=== PATIENT | male | born 1950 | race Caucasian/White ===

== ENCOUNTER 2018-07-10 13:51 | Emergency (ER) | payer OTHER ==
[2018-07-10] MEDS ORDERED: GLUCAGON 1 MG/VIAL ONE ×2 (14:47→16:11)
[2018-07-10] MEDS ORDERED: ONDANSETRON 4 MG/2 ML VIAL ONE (14:47)
[2018-07-10] MEDS ORDERED: NA CHLORIDE 0.9% 1,000 ML ONE (14:47)
[2018-07-10 14:49] LABS: Absolute Lymphocytes (CBC) 0.7 K/uL (0.7-4.9); Absolute Monocytes 0.6 K/uL (0.1-1.3); Absolute Neutrophil 7.3 K/uL (1.8-8.0); Basophils % 0.6 % (0-1.3); Eosinophils % 3.2 % (0-4.4); Hematocrit 39.1 % (39.6-49.0); Lymphocytes % 7.7 % (15.3-44.8); MPV 10.5 fL (7.6-11.3); Monocytes % 7.1 % (3.3-12.3); RBC Red Blood Cell Count 4.38 M/uL (4.33-5.43)
[2018-07-10 14:58] LABS: Protime INR 1.03
[2018-07-10 15:13] LABS: ALT/SGPT 26 U/L (12-78); AST/SGOT 15 U/L (15-37); Albumin 3.6 g/dL (3.4-5.0); Alkaline Phosphatase 125 U/L (45-117); BUN Blood Urea Nitrogen 26 mg/dL (7-18); Bicarbonate 30 mmol/L (21-32); Bilirubin Direct 0.1 mg/dL (0-0.2); Bilirubin Total 0.4 mg/dL (0.2-1.0); Glucose Level 123 mg/dL (74-106); Magnesium 2.3 mg/dL (1.8-2.4); NT PRO-BNP 564 pg/mL (<125); Potassium 3.8 mmol/L (3.5-5.1); Protein, Total 8.3 g/dL (6.4-8.2); Sodium Level 146 mmol/L (136-145); Troponin (Emerg Dept Use Only) < 0.02 ng/mL (0.0-0.045)
--- NOTE | 2018-07-10 15:22 | RAD REPORT ---
EXAM DESCRIPTION: RAD - Chest Single View - 07/10/2018 3:14 pm CLINICAL HISTORY: Cough COMPARISON: None. TECHNIQUE: AP portable chest image was obtained 1510 hours . FINDINGS: Exam is limited by large body habitus and shallow inspiration. Right base opacification co uld be infiltrate, atelectasis or a combination. Left hemidiaphragm elevation present. This limits po sterior left base assessment. Heart and vasculature are normal range in exam limitations. No measurab le pleural effusion and no pneumothorax. No acute bony abnormality seen. No acute aortic findings karel pected. IMPRESSION: Limited portable study showing atelectasis and/ or infiltrate right base.
--- NOTE | 2018-07-10 16:13 | EDPHYS ---
Physician Documentation [facility] Name: Arcenio Ovalle Age: 67 yrs Sex: Male : 1950 Arrival Date: 07/10/2018 Time: 13:54 Bed 17 Private MD: ED Physician Ander Hyde HPI: 07/10 14:57 This 67 yrs old Male presents to ER via Wheelchair with complaints of vriy Difficulty Swallowing - lodged food from last night. 14:57 The patient presents with a foreign body sensation in the throat. The patient describes viry throat pain as dry. Onset: The symptoms/episode began/occurred 1 day(s) ago. Severity of symptoms: At their worst the symptoms were mild, last night. Modifying factors: The symptoms are alleviated by nothing, the symptoms are aggravated by fluids, foods, swallowing. Associated signs and symptoms: The patient has no apparent associated signs or symptoms. The patient has not experienced similar symptoms in the past. Historical: - Allergies: 14:12 No Known Allergies; ch - PMHx: 14:12 Hyperlipidemia; CHF; COPD; o2 depandant; CVA; pulmonary embolism; Diabetes - NIDDM; ch Hypertension; anurism-unknown type; 14:12 GERD; ch - PSHx: 14:12 cardiac stents; ch - Immunization history:: Adult Immunizations up to date, Flu vaccine is not up to date. - Social history:: Smoking status: Patient/guardian denies using tobacco, Patient/guardian denies using alcohol, street drugs. - Ebola Screening: : Patient negative for fever greater than or equal to 101.5 degrees Fahrenheit, and additional compatible Ebola Virus Disease symptoms Patient denies exposure to infectious person Patient denies travel to an Ebola-affected area in the 21 days before illness onset No symptoms or risks identified at this time. - Family history:: not pertinent. ROS: 14:57 Constitutional: Negative for fever, chills, and weight loss, Eyes: Negative for injury, viry pain, redness, and discharge, ENT: Negative for injury, pain, and discharge, Neck: Negative for injury, pain, and swelling, Cardiovascular: Negative for chest pain, palpitations, and edema, Respiratory: Negative for shortness of breath, cough, wheezing, and pleuritic chest pain, Back: Negative for injury and pain, : Negative for injury, bleeding, discharge, and swelling, MS/Extremity: Negative for injury and deformity, Skin: Negative for injury, rash, and discoloration, Neuro: Negative for headache, weakness, numbness, tingling, and seizure, Psych: Negative for depression, anxiety, suicide ideation, homicidal ideation, and hallucinations, Allergy/Immunology: Negative for hives, rash, and allergies, Endocrine: Negative for neck swelling, polydipsia, polyuria, polyphagia, and marked weight changes, Hematologic/Lymphatic: Negative for swollen nodes, abnormal bleeding, and unusual bruising. 14:57 Abdomen/GI: Positive for abdominal pain, nausea and vomiting, food bolus in the esophgus. Exam: 14:57 Constitutional: This is a well developed, well nourished patient who is awake, alert, viry and in no acute distress. Head/Face: Normocephalic, atraumatic. Eyes: Pupils equal round and reactive to light, extra-ocular motions intact. Lids and lashes normal. Conjunctiva and sclera are non-icteric and not injected. Cornea within normal limits. Periorbital areas with no swelling, redness, or edema. ENT: Nares patent. No nasal discharge, no septal abnormalities noted. Tympanic membranes are normal and external auditory canals are clear. Oropharynx with no redness, swelling, or masses, exudates, or evidence of obstruction, uvula midline. Mucous membranes moist. Neck: Trachea midline, no thyromegaly or masses palpated, and no cervical lymphadenopathy. Supple, full range of motion without nuchal rigidity, or vertebral point tenderness. No Meningismus. Chest/axilla: Normal chest wall appearance and motion. Nontender with no deformity. No lesions are appreciated. Cardiovascular: Regular rate and rhythm with a normal S1 and S2. No gallops, murmurs, or rubs. Normal PMI, no JVD. No pulse deficits. Respiratory: Lungs have equal breath sounds bilaterally, clear to auscultation and percussion. No rales, rhonchi or wheezes noted. No increased work of breathing, no retractions or nasal flaring. Back: No spinal tenderness. No costovertebral tenderness. Full range of motion. Male : Normal genitalia with no discharge or lesions. Skin: Warm, dry with normal turgor. Normal color with no rashes, no lesions, and no evidence of cellulitis. MS/ Extremity: Pulses equal, no cyanosis. Neurovascular intact. Full, normal range of motion. Neuro: Awake and alert, GCS 15, oriented to person, place, time, and situation. Cranial nerves II-XII grossly intact. Motor strength 5/5 in all extremities. Sensory grossly intact. Cerebellar exam normal. Normal gait. Psych: Awake, alert, with orientation to person, place and time. Behavior, mood, and affect are within normal limits. 14:57 Abdomen/GI: Inspection: distension, Bowel sounds: normal, active, Palpation: abdomen is soft and non-tender, Liver: no appreciated palpable abnormalities, Hernia: not appreciated. Vital Signs: 14:12 BP 156 / 79; Pulse 81; Resp 22; Temp 98.1; Pulse Ox 99% on R/A; Weight 149.69 kg; ch Height 5 ft. 8 in. (172.72 cm); 15:00 BP 151 / 83; Pulse 79; Resp 23; Pulse Ox 96% on 3 lpm NC; dh3 15:30 BP 156 / 80; Pulse 76; Resp 22; Pulse Ox 99% on 3 lpm NC; dh3 17:30 BP 158 / 84; Pulse 81; Resp 20; Pulse Ox 97% on 3 lpm NC; em 14:12 Body Mass Index 50.18 (149.69 kg, 172.72 cm) MDM: 14:31 Patient medically screened. [facility] 15:02 Data reviewed: vital signs, nurses notes, lab test result(s), EKG, radiologic studies, viry plain films. 07/10 14:33 Order name: Basic Metabolic Panel; Complete Time: 16:08 [facility] 07/10 14:33 Order name: CBC with Diff; Complete Time: 15:03 [facility] 07/10 14:33 Order name: LFT's; Complete Time: 16:08 [facility] 07/10 14:33 Order name: Magnesium; Complete Time: 16:08 [facility] 07/10 14:33 Order name: NT PRO-BNP; Complete Time: 16:08 [facility] 07/10 14:33 Order name: PT-INR; Complete Time: 15:03 [facility] 07/10 14:33 Order name: Troponin (emerg Dept Use Only); Complete Time: 16:08 [facility] 07/10 14:33 Order name: XRAY Chest (1 view); Complete Time: 16:08 [facility] 07/10 14:33 Order name: EKG; Complete Time: 14:34 [facility] 07/10 14:33 Order name: Cardiac monitoring; Complete Time: 14:55 [facility] 07/10 14:33 Order name: EKG - Nurse/Tech; Complete Time: 14:55 [facility] 07/10 14:33 Order name: IV Saline Lock; Complete Time: 14:55 [facility] 07/10 14:33 Order name: Labs collected and sent; Complete Time: 14:55 [facility] 07/10 14:33 Order name: O2 Per Protocol; Complete Time: 14:55 [facility] 07/10 14:33 Order name: O2 Sat Monitoring; Complete Time: 14:55 [facility] Administered Medications: 14:49 Drug: NS 0.9% 1000 ml Route: IV; Rate: 125 ml/hr; Site: left antecubital; em 18:17 Follow up: IV Status: Infusion continued upon transfer; IV Intake: 200ml em 14:51 Drug: Glucagon 1 mg Route: IVP; Site: left antecubital; la1 15:30 Follow up: Response: No adverse reaction em 14:52 Drug: Zofran 4 mg Route: IVP; Site: left antecubital; la1 15:30 Follow up: Response: No adverse reaction em 16:25 Drug: Glucagon 1 mg Route: IVP; Site: left antecubital; ss 18:02 Follow up: Response: No adverse reaction em 17:23 Drug: Pepcid 20 mg Route: IVP; Site: left antecubital; la1 18:02 Follow up: Response: No adverse reaction em Point of Care Testing: Blood Glucose: 17:28 Blood Glucose: 187 mg/dL; em Ranges: Critical Glucose Levels:Adult <50 mg/dl or >400 mg/dl <40 mg/dl or >180 mg/dl Disposition: 07/10/18 16:12 Transfer ordered to [facility]. Diagnosis are Esophageal obstruction - food bolus, Unspecified kidney failure, Obesity, unspecified. - Reason for transfer: Higher level of care. - [facility] - Condition is Fair. - Problem is new. - Symptoms have improved. Signatures: Dispatcher [employer] Patricia Portillo RN RN ch Anderson, Corey, MD MD cha Munoz, Edgar, WEB MASTER WEB MASTER em Bridgett Sanz RN RN Delbert Gacria RN RN la1 Corrections: (The following items were deleted from the chart) 18:18 16:12 07/10/2018 16:12 Transfer ordered to [facility]. Diagnosis is em Esophageal obstruction - food bolus; Unspecified kidney failure; Obesity, unspecified. Reason for transfer: Higher level of care. [facility]. Condition is Fair. Problem is new. Symptoms have improved. viry
--- NOTE | 2018-07-10 16:13 | ER ---
Nurse's Notes [facility] Name: Arcenio Ovalle Age: 67 yrs Sex: Male : 1950 Arrival Date: 07/10/2018 Time: 13:54 Bed 17 Private MD: Diagnosis: Esophageal obstruction-food bolus;Unspecified kidney failure;Obesity, unspecified Presentation: 07/10 14:08 Presenting complaint: Child states: ate a piece of steak last night, states since then ch he cannot eat anything and keep it down. no drooling noted right now. Transition of care: patient was not received from another setting of care. Onset of symptoms was July 09, 2018 at 17:00. Risk Assessment: Do you want to hurt yourself or someone else? Patient reports no desire to harm self or others. Initial Sepsis Screen: Does the patient meet any 2 criteria? No. Patient's initial sepsis screen is negative. Does the patient have a suspected source of infection? No. Patient's initial sepsis screen is negative. Care prior to arrival: None. 14:08 Method Of Arrival: Wheelchair 14:08 Acuity: KEVIN 2 ch Triage Assessment: 14:12 General: Appears in no apparent distress. comfortable, Behavior is calm, cooperative, ch appropriate for age. Pain: Complains of pain in xyphoid area and mid-sternal area. Historical: - Allergies: 14:12 No Known Allergies; ch - PMHx: 14:12 Hyperlipidemia; CHF; COPD; o2 depandant; CVA; pulmonary embolism; Diabetes - NIDDM; ch Hypertension; anurism-unknown type; 14:12 GERD; - PSHx: 14:12 cardiac stents; ch - Immunization history:: Adult Immunizations up to date, Flu vaccine is not up to date. - Social history:: Smoking status: Patient/guardian denies using tobacco, Patient/guardian denies using alcohol, street drugs. - Ebola Screening: : Patient negative for fever greater than or equal to 101.5 degrees Fahrenheit, and additional compatible Ebola Virus Disease symptoms Patient denies exposure to infectious person Patient denies travel to an Ebola-affected area in the 21 days before illness onset No symptoms or risks identified at this time. - Family history:: not pertinent. Screenin:33 Abuse screen: Denies threats or abuse. Nutritional screening: No deficits noted. em Tuberculosis screening: No symptoms or risk factors identified. Fall Risk None identified. Assessment: 14:30 General: Appears in no apparent distress. comfortable, Behavior is calm, cooperative. em Pain: Denies pain. Neuro: Level of Consciousness is awake, alert, obeys commands, Oriented to person, place, time, situation. Cardiovascular: Capillary refill < 3 seconds Patient's skin is warm and dry. Respiratory: Airway is patent Respiratory effort is even, unlabored, Respiratory pattern is regular, symmetrical, Breath sounds are clear bilaterally. GI: Abdomen is obese, Reports intolerance of fluids, intolerance of food, nausea, vomiting. EENT: Nares are clear Oral mucosa is moist. Throat is clear is pink. Derm: Skin is intact, is healthy with good turgor, Skin is pink, warm \T\ dry. Musculoskeletal: Range of motion: intact in all extremities. 15:30 Reassessment: Patient appears in no apparent distress at this time. glucagon has not em helped, provider notified. 16:30 Reassessment: Patient appears in no apparent distress at this time. Patient and/or em family updated on plan of care and expected duration. Pain level reassessed. Patient is alert, oriented x 3, equal unlabored respirations, skin warm/dry/pink. 17:14 Reassessment: Patient appears in no apparent distress at this time. pt family upset of em pt transfer to another facility, informed pt there is not a GI or ENT doctor administration assistant, needs higher level of care, Dr. Hyde at bedside discussing POC. 17:40 Reassessment: report called to GILMAR Hassan at [facility], pending transportation.em 18:13 Reassessment: Patient appears in no apparent distress at this time. Patient and/or em family updated on plan of care and expected duration. Pain level reassessed. Patient is alert, oriented x 3, equal unlabored respirations, skin warm/dry/pink. report given to EMS. Vital Signs: 14:12 BP 156 / 79; Pulse 81; Resp 22; Temp 98.1; Pulse Ox 99% on R/A; Weight 149.69 kg; ch Height 5 ft. 8 in. (172.72 cm); 15:00 BP 151 / 83; Pulse 79; Resp 23; Pulse Ox 96% on 3 lpm NC; dh3 15:30 BP 156 / 80; Pulse 76; Resp 22; Pulse Ox 99% on 3 lpm NC; dh3 17:30 BP 158 / 84; Pulse 81; Resp 20; Pulse Ox 97% on 3 lpm NC; em 14:12 Body Mass Index 50.18 (149.69 kg, 172.72 cm) ED Course: 13:54 Patient arrived in ED. as 14:09 Triage completed. 14:12 Arm band placed on left wrist. Patient placed in an exam room. 14:22 Jostin Francois LVN is Primary Nurse. em 14:30 Initial lab(s) drawn, by me, sent to lab. dh3 14:30 Missed attempt(s): 20 gauge in right antecubital area. Bleeding controlled, band aid dh3 applied, catheter tip intact. 14:31 Ander Hyde MD is Attending Physician. [facility] 14:33 Patient has correct armband on for positive identification. Bed in low position. Call em light in reach. Side rails up X2. Pulse ox on. NIBP on. 14:35 Inserted saline lock: 20 gauge in right antecubital area, using aseptic technique. dh3 14:50 EKG done, by ED staff, reviewed by Ander Hyde MD. dh3 15:15 XRAY Chest (1 view) In Process Unspecified. EDMS 16:07 attempted to initiate a transfer with Stephani at the [facility]/ per Stephani they are not eb accepting any transfers at this time. 16:[address] Hyde with Francine at the [facility] transfer center. eb 16:[address] Bejarano the GI administration assistant from [facility] with Dr. Hyde for patient eb transfer consultation. 16:[address] Lopez the Hospitalist administration assistant with Dr. Hyde for patient transfer eb consultation. 16:54 administrative approval given by Francine Huff RN/ Dr. Lopez has accepted the patient eb in transfer/ pt going to [address] [place] [address]/ report to be called to [phone]. 17:58 IV discontinued, intact, bleeding controlled, No redness/swelling at site. Pressure dh3 dressing applied. 18:00 Inserted saline lock: 22 gauge in right hand, using aseptic technique. dh3 18:15 No provider procedures requiring assistance completed. Patient transferred, IV remains em in place. Administered Medications: 14:49 Drug: NS 0.9% 1000 ml Route: IV; Rate: 125 ml/hr; Site: left antecubital; em 18:17 Follow up: IV Status: Infusion continued upon transfer; IV Intake: 200ml em 14:51 Drug: Glucagon 1 mg Route: IVP; Site: left antecubital; la1 15:30 Follow up: Response: No adverse reaction em 14:52 Drug: Zofran 4 mg Route: IVP; Site: left antecubital; la1 15:30 Follow up: Response: No adverse reaction em 16:25 Drug: Glucagon 1 mg Route: IVP; Site: left antecubital; ss 18:02 Follow up: Response: No adverse reaction em 17:23 Drug: Pepcid 20 mg Route: IVP; Site: left antecubital; la1 18:02 Follow up: Response: No adverse reaction em Point of Care Testing: Blood Glucose: 17:28 Blood Glucose: 187 mg/dL; em Ranges: Intake: 18:17 IV: 200ml; Total: 200ml. em Outcome: 16:12 ER care complete, transfer ordered by MD. baires 18:15 Transferred to [facility], [facility], Transfer form completed. X-rays sent w/ em patient. 18:15 Condition: good 18:15 Instructed on the need for transfer, Demonstrated understanding of instructions. 18:18 Patient left the ED. em Signatures: Dispatcher [employer] Patricia Portillo RN RN Ander Hyde MD MD cha Munoz, Edgar, INTERVENTION MANAGER INTERVENTION MANAGER em Perri Wells Shelby, RN RN Delbert Garcia RN RN la1 Herrera, Deanna [facility] Yandy Berrios Corrections: (The following items were deleted from the chart) 14:59 14:30 Inserted saline lock: 20 gauge in left antecubital area, using aseptic technique. 3 Blood collected. [facility] 17:35 14:49 NS 0.9% 1000 ml IV at 5 ml/hr in left antecubital em em
[2018-07-10] MEDS ORDERED: FAMOTIDINE 20 MG/2 ML VIAL IV ONE (17:04)
[2018-07-10 19:40] VITALS: TEMP 98.1
[2018-07-10 19:43] VITALS: BP 158/84; O2SAT 97
--- NOTE | 2018-07-10 21:10 | EKG ---
Test Date: 2018-07-10 Test Time: 14:47:31 Staff Developer: ANDIE MEASUREMENT RESULTS: Intervals: Rate: 79 NH: 200 QRSD: 112 QT: 422 QTc: 483 [place]: P: 51 NH: 200 QRS: 82 T: 76 INTERPRETIVE STATEMENTS: Normal sinus rhythm Prolonged QT Abnormal ECG Compared to ECG 03/07/2005 11:15:00 Prolonged QT interval now present Electronically Signed On 07-10-18 21:09:18 LAUNDRY ATTENDANT by Guicho Le
== END 2018-07-10 18:18 | disposition short-term general hospital (02) ==
LOC: ER 13:51
DX: K22.2 Esophageal obstruction (principal); N19 Unspecified kidney failure; E66.9 Obesity, unspecified; I10 Essential (primary) hypertension; Z95.818 Presence of other cardiac implants and grafts
CPT/HCPCS: 36415; 71045; 80048; 80076; 82962; 83735; 83880; 84484; 85025; 85610; 93005; 96361; 96374; 96375; 99285; J1610; J2405; J7030